=== PATIENT | female | born 1990 | race Caucasian/White ===

== ENCOUNTER 2016-07-31 15:11 | Emergency (ER) | payer OTHER, MEDICAID ==
[2016-07-31 15:14] VITALS: BMI 18.8
[2016-07-31 15:16] VITALS: BP 122/84; PULSE 75; RESP 15; TEMP 98.8; O2SAT 100
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
--- NOTE | 2016-08-01 08:38 | RAD ---
PROCEDURE: Right Wrist Radiographs. HISTORY: wrist injury COMPARISON: None. FINDINGS: BONES: Normal. No fracture. JOINTS: Normal. No dislocation. SOFT TISSUES: Normal. OTHER FINDINGS: None. IMPRESSION: Normal right wrist radiographs.
--- NOTE | 2016-08-01 08:39 | RAD ---
PROCEDURE: Radiographs of the Right Shoulder HISTORY: shoulder pain COMPARISON: No prior. FINDINGS: BONES: Normal. No fracture. JOINTS: Normal. Glenohumeral and acromioclavicular joints preserved. No osteoarthritis. SOFT TISSUES: Normal. OTHER FINDINGS: None. IMPRESSION: Normal radiographs of the right shoulder.
== END 2016-07-31 21:24 | disposition home or self-care (01) ==
LOC: ED 15:11
DX: M25.531 Pain in right wrist (principal); M54.2 Cervicalgia; M25.511 Pain in right shoulder